=== PATIENT | female | born 1955 | race Caucasian/White ===

== ENCOUNTER → 2018-07-21 | Outpatient (CLI) | payer OTHER, BC ==
[~2018-07-21] MED LIST: Aspir 8181 MG PO; CHOL10002 PO; HYDR1TAB94 PO; IBUP600 PO; LEVSOD100 PO; TERBINAFINE HCL PO; Vitamin B-121000 MCG PO
== END | disposition home or self-care (01) ==
LOC: LAB EV 13:37 → LAB SHORT 13:37
DX: L03.011 Cellulitis of right finger (principal)
CPT/HCPCS: 87070; 87075; 87077; 87186; 87205

== ENCOUNTER 2018-09-24 07:02 | Day surgery (SDC) | payer OTHER, BC ==
[~2018-09-24] VITALS: Ht 172.7 cm; Wt 100.4 kg
[2018-09-24] MEDS ORDERED: TERB250 (07:45)
== END 2018-09-24 09:29 | disposition home or self-care (01) ==
LOC: ORSCSDS 07:02
PROVIDERS: Internal Medicine Gastroenterology
PROC: 0DBK8ZX Excision of Ascending Colon, Via Natural or Artificial Opening Endoscopic, Diagnostic (ICD-10-PCS; principal; 2018-09-24 08:30)
DX: Z12.11 Encounter for screening for malignant neoplasm of colon (principal); D12.2 Benign neoplasm of ascending colon; K64.8 Other hemorrhoids; E03.9 Hypothyroidism, unspecified; E78.2 Mixed hyperlipidemia; E88.81 Metabolic syndrome and other insulin resistance; G25.81 Restless legs syndrome; F17.210 Nicotine dependence, cigarettes, uncomplicated; Z79.899 Other long term (current) drug therapy
CPT/HCPCS: 88305; J1980; J2405; J2704; J7120

== ENCOUNTER → 2021-02-24 | Outpatient (CLI) | payer OTHER, BC ==
[~2021-02-24] MED LIST changes: +TERB250
== END | disposition home or self-care (01) ==
LOC: LAB SHORT 14:46
PROVIDERS: Student in an Organized Health Care Education/Training Program
DX: Z51.81 Encounter for therapeutic drug level monitoring (principal); Z79.899 Other long term (current) drug therapy
CPT/HCPCS: G0480

== ENCOUNTER → 2022-03-15 | Outpatient (CLI) | payer OTHER, BC | END | disposition home or self-care (01) | LOC: PLD 15:07 → LAB SHORT 15:07 | DX: D04.71 Carcinoma in situ of skin of right lower limb, including hip (principal) | CPT/HCPCS: 88305 ==

== ENCOUNTER 2023-07-27 07:08 | Day surgery (SDC) | payer BC, MEDICARE ==
[2023-07-27] VITALS (18 sets, daily range): BP systolic 108–169; BP diastolic 54–100
[~2023-07-27] VITALS: Ht 172.7 cm; Wt 101.6 kg
[~2023-07-27 07:08] MED LIST changes: +ATOR10 PO; +FURO20 PO; +Lactated Ringer's 1,000 ML IV SCH; +NAPR220 PO; +Nicoderm Cq1 EAC1 TOP; +POTA8 PO
[2023-07-27] MEDS ORDERED: propofoL 20 ML IV ONE ×2 (07:14→07:15)
[2023-07-27] MEDS ORDERED: Benzocaine Oral Spray 0.5ML UD ONE (07:14)
--- NOTE | 2023-07-27 08:10 | NUR ---
07/27/23 0810 Evert Downey HISTORY, CHART, MEDICATIONS AND ALLERGIES REVIEWED BEFORE START OF PROCEDURE. PATIENT CONFIRMS NPO STATUS AND AGREES WITH SCHEDULED PROCEDURE. 3-LEAD EKG REVIEWED WITH PHYSICIAN PRIOR TO START OF PROCEDURE. MONITOR INTACT WITH CONTINUOUS PULSE OXIMETRY,CAPNOGRAPHY, 3-LEAD EKG, INTERMITTENT BP. SUPPLEMENTAL O2 TO BE TITRATED THROUGHOUT PROCEDURE TO MAINTAIN O2 SATURATION ABOVE 90%. PATIENT DETERMINED TO BE ASA APPROPRIATE FOR PROPOFOL SEDATION PRIOR TO START OF PROCEDURE BY DR. ELLIS.
--- NOTE | 2023-07-27 08:35 | NUR ---
PT TO DAY SURGERY STEP DOWN FROM COLONOSCOPY. PT IS AWAKE, ALERT AND ORIENTED; ABLE TO MOVE SELF IN BED. PT DENIES PAIN. VSS.
--- NOTE | 2023-07-27 08:44 | NUR ---
TOLERATING PO FLUIDS WELL Discharge instructions reviewed with patient. Patient verbalizes understanding. Copy given to patient to take home. Patient States Post-Procedure ride home has been arranged.
--- NOTE | 2023-07-27 08:53 | NUR ---
Patient up to Ambulate independently. Gait steady.
--- NOTE | 2023-07-27 08:54 | NUR ---
Discharged via wheelchair to private car for ride home.
--- NOTE | 2023-07-27 09:02 | NUR ---
0715: PT IN SDS. Patient up to Ambulate independently. Gait steady. History, Chart, Medications and Allergies reviewed before start of procedure. Lungs clear T/O to Auscultation. Pre-Op teaching done. Pt verbalizes understanding. Patient states colon prep results clear. Patient confirms NPO status and agrees with scheduled procedure.
== END 2023-07-27 08:55 | disposition home or self-care (01) ==
LOC: ORSCMMR 07:08 → ORD 08:00 → ORSCMMR 08:55
PROVIDERS: Internal Medicine Gastroenterology
PROC: 0DBP8ZX Excision of Rectum, Via Natural or Artificial Opening Endoscopic, Diagnostic (ICD-10-PCS; principal; 2023-07-27 08:00)
PROC: 0DBK8ZX Excision of Ascending Colon, Via Natural or Artificial Opening Endoscopic, Diagnostic (ICD-10-PCS; principal; 2023-07-27 08:00)
DX: Z12.11 Encounter for screening for malignant neoplasm of colon (principal); Z86.010 Personal history of colon polyps; Z85.3 Personal history of malignant neoplasm of breast; K63.5 Polyp of colon; D12.2 Benign neoplasm of ascending colon; K62.1 Rectal polyp; E03.9 Hypothyroidism, unspecified; E78.00 Pure hypercholesterolemia, unspecified; R60.0 Localized edema; F17.210 Nicotine dependence, cigarettes, uncomplicated; Z68.34 Body mass index [BMI] 34.0-34.9, adult; Z79.899 Other long term (current) drug therapy
CPT/HCPCS: 88305; A9270; J2704; J7120

== ENCOUNTER → 2024-08-15 | Outpatient (CLI) | payer BC, MEDICARE ==
[~2024-08-15] MED LIST changes: -Lactated Ringer's 1,000 ML IV SCH
== END ==
LOC: LAB SHORT 07:59 → LAB 07:59 → PLD 07:59
DX: D17.39 Benign lipomatous neoplasm of skin and subcutaneous tissue of other sites (principal)
CPT/HCPCS: 88305